=== PATIENT | male | born 1960 | race Caucasian/White ===

== ENCOUNTER 2021-03-21 22:15 | Emergency (ER) | payer SELFPAY ==
[~2021-03-21 22:15] MED LIST: ADVAIR 250-501 EACH INH; IPRAT-ALBUT 0.5-3 ML NEB; MEDROL DOSEPAK 24 MG PO; PROAIR HFA8.5 GM INH
[2021-03-22 01:09] LABS: HEMOGLOBIN 12.7 gm/dl (14.0-17.5); RED BLOOD COUNT 3.99 M/UL (4.20-5.50); WHITE BLOOD COUNT 10.4 K/UL (4.5-11.0)
== END 2021-03-22 08:00 | disposition home or self-care (01) ==
LOC: ER1 22:15
PROVIDERS: Physician Assistant Medical
DX: U07.1 COVID-19 (principal); K21.9 Gastro-esophageal reflux disease without esophagitis; J44.9 Chronic obstructive pulmonary disease, unspecified; I10 Essential (primary) hypertension; Z88.5 Allergy status to narcotic agent
CPT/HCPCS: 71045; 80053; 82550; 82553; 83874; 84484; 85025; 93005; 99285; U0002